=== PATIENT | male | born 1980 | race Caucasian/White ===

== ENCOUNTER 2018-06-04 01:13 | Emergency (ER) | payer OTHER, MEDICAID, SELFPAY ==
--- NOTE | 2018-06-04 01:19 | ED.EXTPRO ---
HPI - Extremity Problem General Chief complaint: Skin/Abscess/Foreign Body Stated complaint: RIGHT LEG IS SWELLING, INJURED AT WORK Time Seen by Provider: 06/04/18 01:18 Source: patient Mode of arrival: ambulatory Limitations: no limitations History of Present Illness HPI Narrative: Patient is a 37-year-old male here for evaluation of a right leg injury. He states that the end of last week he scraped his leg on a door frame. He did go to work the next day and had some discomfort. Over the weekend he did not have to work. He did state that his leg has been elevated. He returned to work today and after his 10 hr shift he had swelling and pain and redness around the injury site. He does not know when his last tetanus shot was. Related Data Previous Rx's Medication Instructions Recorded cephalexin [Keflex] 500 mg PO BID 7 Days #14 cap 06/04/18 Allergies Allergy/AdvReac Type Severity Reaction Status Date / Time No Known Drug Allergies Allergy Verified 06/04/18 01:29 Review of Systems Constitutional Denies fever(s) and Denies weakness ENT Ears, Nose, Mouth, and Throat: Denies disequilibrium Cardiovascular Denies chest pain and Denies dyspnea Respiratory Denies dyspnea Gastrointestinal Gastrointestinal: Denies abdominal pain Musculoskeletal Comments: Pain in his right leg Integumentary/Breasts Comments: Cut to his right anterior leg with pain and swelling Neurologic Denies paresthesias, Denies disequilibrium and Denies weakness Hematologic/Lymphatic Comments: Not on anticoagulation PFSH Medical History Healthy adult (Acute) Surgical History No pertinent past surgical history (Acute) Social History Smoking Status: Current every day smoker Exam Initial Vital Signs Initial Vital Signs: Vital Signs Temperature 99.6 F 06/04/18 01:24 Pulse Rate 78 06/04/18 01:24 Respiratory Rate 14 06/04/18 01:24 Blood Pressure 133/83 06/04/18 01:24 Pulse Oximetry 98 06/04/18 01:24 Const General: cooperative, healthy appearing, comfortable, well developed, well groomed and No acute distress Orientation: alert, awake and oriented x3 HENMT Head: normal to inspection and normocephalic Resp Effort & Inspection: normal respiratory effort Cardio Rate: regular rate Skin Other: Patient with a 4 cm abrasion on the anterior aspect of his right miller at the distal 1/3. Does have surrounding erythema. No drainage. There is an eschar in place. Extrem Other: Patient with 1+ pitting edema from the top of wear his boot had been on all day to just distal to his knee. Psych Appearance: grossly normal and well kempt Course Orders Ordered: Discontinued Medications Diphtheria/Tetanus/Acell Pertussis (Adacel) 0.5 ml IM .ONCE ONE Stop: 06/04/18 01:36 Vital Signs - 8 hr 06/04/18 01:24 Temperature 99.6 F Pulse Rate 78 Respiratory Rate 14 Blood Pressure 133/83 Pulse Oximetry 98 MDM - Extremity (Nontraumatic) MDM Narrative Medical decision making narrative: Patient does have an abrasion on his right anterior miller with some surrounding erythema. No drainage. Well out of the window for any sort of suturing. I did inform him that it would former scar. He does have some surrounding erythema which is concerning for cellulitis. Does have swelling from the area where his boot ended to just distal to his knee. I suspect that this is because he has been standing today. His tetanus was updated. He was given return precautions. He expressed understanding and agreement with plan. Discharge Plan Departure Patient Disposition: Home Clinical Impression: Abrasion of skin, Cellulitis Instructions: DI for Abrasion Activity Restrictions/Additional Instructions: Keep the area clean with soap and water. Your tetanus shot was updated today. Take the antibiotics as directed. Return to the emergency department for any new or worsening symptoms Prescriptions: New cephalexin [Keflex] 500 mg capsule 500 mg PO BID 7 Days Qty: 14 RF: 0
[2018-06-04 01:24] VITALS: BP 133/83; PULSE 78; RESP 14; TEMP 37.6; O2SAT 98; BMI 27.9
[2018-06-04] MEDS: TET,DIPH,PERTUSS(ACELL),VAC/PF 0.5 ML SYRINGE IM (01:46)
== END 2018-06-04 01:57 | disposition home or self-care (01) ==
LOC: ED 01:59
PROVIDERS: Emergency Provider Emergency Medicine
DX: S80.811A Abrasion, right lower leg, initial encounter (principal); W22.09XA Striking against other stationary object, initial encounter; L03.115 Cellulitis of right lower limb
CPT/HCPCS: 90471; 99282; 99283; 90715

== ENCOUNTER → 2019-10-22 15:45 | Outpatient (CLI) | payer OTHER, SELFPAY ==
[2019-10-24 14:08] LABS: QuantiFERON Mitogen Value 6.28 IU/mL (.); QuantiFERON Nil Value 0.11 IU/mL (.); QuantiFERON TB Gold Plus Positive (Negative); QuantiFERON TB1 Ag Value 0.85 IU/mL (.); QuantiFERON TB2 Ag Value 0.55 IU/mL (.)
== END ==
PROVIDERS: Referring Provider Family Medicine; Visit Provider Family Medicine
DX: R76.11 Nonspecific reaction to tuberculin skin test without active tuberculosis (principal)
CPT/HCPCS: 36415; 86480

== ENCOUNTER 2020-02-07 11:51 | Emergency (ER) | payer OTHER, SELFPAY ==
[2020-02-07 12:01] VITALS: BP 143/85; PULSE 57; RESP 16; TEMP 36.2; O2SAT 100; BMI 29.4
[2020-02-07] MEDS: PROPARACAINE 0.5% OPHTH SOL 1 DROPS EYE-RIGHT (12:11)
[2020-02-07] MEDS: FLUORESCEIN 1 MG STRIP EYE-BOTH (12:11)
[2020-02-07] MEDS: SULFACETAMIDE 10% OPHTH PREPACK 1 BOTTLE MISC (12:29)
--- NOTE | 2020-02-07 12:29 | ED.EYEPROB ---
HPI - Eye Problem General Chief complaint: Eye Problems Stated complaint: Object in RT eye Time Seen by Provider: 02/07/20 12:01 Source: patient Mode of arrival: Ambulatory Limitations: no limitations History of Present Illness HPI Narrative: 39M daily smoker without significant medical history presents from the walk-in clinic for evaluation of retained foreign body in right eye. Patient was wearing glasses, while working with metal yesterday and a small shaving got into his right eye. He denies any vision change but has had watering and some discomfort. His tetanus was updated last year. He does not wear contacts. He was first seen at [facility], given proparacaine an attempt to remove foreign body with moistened Q-tip was unsuccessful. He was sent here for further evaluation. chief complaint: eye injury Onset (ago): hour(s) Onset description: sudden Duration: constant Location: right eye Eye Symptoms: foreign body sensation Place: home Mechanism: occurred while hammering/grinding Severity: mild If Pain, Quality: aching Context: trauma Associated symptoms: none Treatments Prior to Arrival: other Related Data Patient tetanus UTD: Yes Home Medications Medication Instructions Recorded Confirmed No Known Home Medications 02/07/20 02/07/20 Allergies Allergy/AdvReac Type Severity Reaction Status Date / Time No Known Drug Allergies Allergy Verified 02/07/20 11:17 Review of Systems Constitutional Constitutional: Denies chills, Denies fatigue, Denies fever(s), Denies frequent falls, Denies lethargy and Denies weakness Eyes Eyes: Denies change in vision, Denies eye discharge, Denies irritation, Denies loss of vision and Reports other ENT Ears, Nose, Mouth, and Throat: Denies change in voice, Denies dizziness, Denies neck pain, Denies sore throat and Denies throat swelling Cardiovascular Cardiovascular: Denies chest pain, Denies irregular heart rhythm, Denies lightheadedness, Denies palpitations, Denies dyspnea, Denies dyspnea on exertion and Denies orthopnea Respiratory Respiratory: Denies cough, Denies dyspnea, Denies dyspnea on exertion and Denies wheezing Gastrointestinal Gastrointestinal: Denies abdominal pain, Denies change in bowel habits, Denies diarrhea, Denies nausea and Denies vomiting Musculoskeletal Musculoskeletal: Denies neck pain and Denies numbness Integumentary/Breasts Skin/Breast: Denies pruritus, Denies erythema, Denies rash and Denies wounds Neurologic Neurologic: Denies behavioral changes, Denies confusion, Denies dizziness, Denies frequent falls, Denies loss of vision, Denies numbness and Denies weakness Psychiatric Psychiatric: Denies anxiety, Denies behavioral changes, Denies confusion, Denies depression, Denies homicidal ideation and Denies suicidal ideation Endocrine Endocrine: Denies fatigue, Denies flushing and Denies palpitations Hematologic/Lymphatic Hematologic/Lymphatic: Denies easy bruising Allergic/Immunologic Allergic/Immunologic: Denies urticaria, Denies throat swelling and Denies wheezing Patient History Medical History FB eye (Acute) Healthy adult (Acute) Surgical History No pertinent past surgical history (Acute) Social History Smoking Status: Current every day smoker Smoking Status: Current every day smoker alcohol intake frequency: 0-2 drinks per day Substance Use Type: does not use Exam Narrative Exam Narrative: GEN: AOx3 and in mild distress EYES: Small FB noted at 5 o'clock position overlying iris. Upper lid everted. Near complete resolution of discomfort with proparacaine. FB easily swept away with moistened qtip. When viewed under UV lamp there was a very small area of corneal abrasion. Pupils are equal, round, and reactive to light and accommodation. Extraoccular muscles are intact bilaterally. There is no subconjunctival hemorrhage or exudate. CHEST: Lungs are clear to auscultation bilaterally and free of wheezes, rales, or rhonchi. Heart rate is regular rhythm, there are no murmurs, clicks, rubs, or gallops. There is no chest wall tenderness. ABD: Abdomen is soft and nontender. There is no guarding or rebound. Bowel sounds are normal in all 4 quadrants. There is no mass or organomegaly. EXT: Full painless ROM of all extremities with no loss of sensation or strength. SKIN: Warm, pink, and dry. No erythema or rash Initial Vital Signs Initial Vital Signs: Vital Signs Temperature 97.2 F L 02/07/20 12:01 Pulse Rate 57 L 02/07/20 12:01 Respiratory Rate 16 02/07/20 12:01 Blood Pressure 143/85 H 02/07/20 12:01 Pulse Oximetry 100 02/07/20 12:01 Course Orders Ordered: Discontinued Medications Fluorescein Sodium (Ful-Teetee) 1 mg EYE-BOTH NOW ONE Stop: 02/07/20 12:05 Last Admin: 02/07/20 12:11 Dose: 1 mg Documented by: PEYTON Proparacaine HCl (Parcaine 0.5% Ophth Ana) 1 drops EYE-RIGHT NOW ONE Stop: 02/07/20 12:02 Last Admin: 02/07/20 12:11 Dose: 1 1000units Documented by: PEYTON Sulfacetamide (Bleph-10 Prepack) 1 bottle MISC SEEINSTR ONE Stop: 02/07/20 12:19 Vital Signs Vital signs: Vital Signs - 8 hr 02/07/20 12:01 Temperature 97.2 F L Pulse Rate 57 L Respiratory Rate 16 Blood Pressure 143/85 H Pulse Oximetry 100 Discharge Plan Departure Patient Disposition: Home Clinical Impression: FB eye Qualifiers: Encounter type: initial encounter Laterality: right Qualified Code(s): T15.91XA - Foreign body on external eye, part unspecified, right eye, initial encounter Corneal abrasion Qualifiers: Encounter type: initial encounter Laterality: right Qualified Code(s): S05.01XA - Injury of conjunctiva and corneal abrasion without foreign body, right eye, initial encounter Discharge Date/Time: 02/07/20 12:33 Instructions: DI for Corneal Abrasion, DI for Corneal Foreign Body-Eye Activity Restrictions/Additional Instructions: *You have been diagnosed with [corneal foreign body with small abrasion] *What to do: *Take medications as directed *Follow up with your primary care provider in 2-3 days, call for an appointment. Let them know you were seen in the Emergency Department and that we ask that you be seen in follow up *Return to ER if you should have any new, worsening or concerning symptoms Prescriptions: No Action No Known Home Medications RF: 0 Referrals: Edil Rodriguez MD [Physician] -
== END 2020-02-07 12:33 | disposition home or self-care (01) ==
PROVIDERS: Emergency Provider Emergency Medicine
DX: T15.91XA Foreign body on external eye, part unspecified, right eye, initial encounter (principal); S05.01XA Injury of conjunctiva and corneal abrasion without foreign body, right eye, initial encounter
CPT/HCPCS: 99282

== ENCOUNTER → 2021-01-05 13:13 | Outpatient (ROUT) | payer OTHER, SELFPAY ==
[2021-01-05 13:51] LABS: COVID19 -Nasal RAPID Negative (Negative)
== END ==
PROVIDERS: Visit Provider Family Medicine
DX: Z20.822 Contact with and (suspected) exposure to COVID-19 (principal)
CPT/HCPCS: 87635

== ENCOUNTER → 2021-02-21 12:59 | Outpatient (ROUT) | payer OTHER, SELFPAY ==
[2021-02-21 15:08] LABS: COVID19 -Nasal RAPID Negative (Negative)
== END ==
PROVIDERS: Visit Provider Family Medicine
DX: Z20.822 Contact with and (suspected) exposure to COVID-19 (principal)
CPT/HCPCS: 87635

== ENCOUNTER → 2021-04-29 12:16 | Outpatient (CLI) | payer OTHER, SELFPAY ==
[2021-04-29 13:02] LABS: COVID19 -Nasal RAPID Negative (Negative)
== END ==
PROVIDERS: Visit Provider Physician Assistant
DX: Z20.822 Contact with and (suspected) exposure to COVID-19 (principal); J02.9 Acute pharyngitis, unspecified; R05.9 Cough, unspecified
CPT/HCPCS: 87635

== ENCOUNTER → 2021-07-07 08:29 | Outpatient (CLI) | payer OTHER, SELFPAY ==
[2021-07-07 09:20] LABS: Add Manual Diff / Slide Review NO; Basophils Absolute Auto 0 /uL (0-100); Basophils Percent Auto 0.5 % (0-2); Eosinophils Absolute Auto 200 /uL (0-450); Eosinophils Percent Auto 2.8 % (2-4); Hematocrit 44.2 % (41-53); Hemoglobin 15.5 g/dL (13.5-17.5); Lymphocytes Absolute Auto 2100 /uL (1100-4500); Lymphocytes Percent Auto 33.8 % (25-40); Mean Corpuscular Hemoglobin 30.7 PG (26-34); Mean Corpuscular Volume 87.8 fL (80-100); Monocytes Absolute Auto 500 /uL (0-900); Monocytes Percent Auto 8.6 % (3-14); Neutrophils Absolute Auto 3300 /uL (1500-7000); Neutrophils Percent Auto 54.3 % (50-75); Platelet Count 158 X10^3/uL (150-400); Red Blood Cell Count 5.03 X10^6/uL (4.5-5.9); Red Cell Distribution Width 12.7 % (11.6-14.8); White Blood Cell Count 6.2 X10^3/uL (4.5-11.0)
[2021-07-07 09:38] LABS: BUN Creatinine Ratio 22.1 (6-22); Blood Urea Nitrogen 19 mg/dL (9-20); Calcium 9.9 mg/dL (8.4-10.2); Carbon Dioxide 31 mmol/L (22-32); Chloride 104 mmol/L (98-107); Cholesterol 223 mg/dL (140-199); Estimated Glomerular Filt Rate > 60.0 mL/min (>60); Glucose 100 mg/dL (70-100); HDL Cholesterol 61 mg/dL (40-60); HEMOLYSIS < 15 (0-50); LDL Cholesterol Calculated 142 mg/dL (<100); Potassium 4.4 mmol/L (3.4-5.1); Sodium 140 mmol/L (137-145); Triglycerides 100 mg/dL (35-150)
== END ==
PROVIDERS: PCP Family Medicine; Referring Provider Family Medicine; Visit Provider Family Medicine
DX: Z13.220 Encounter for screening for lipoid disorders (principal)
CPT/HCPCS: 36415; 80048; 80061; 85025

== ENCOUNTER → 2021-10-08 08:55 | Outpatient (CLI) | payer OTHER, SELFPAY ==
[2021-10-08 10:49] LABS: Cholesterol 199 mg/dL (140-199); HDL Cholesterol 59 mg/dL (40-60); LDL Cholesterol Calculated 117 mg/dL (<100); Triglycerides 117 mg/dL (35-150)
== END ==
PROVIDERS: PCP Family Medicine; Referring Provider Family Medicine; Visit Provider Family Medicine
DX: E78.00 Pure hypercholesterolemia, unspecified (principal)
CPT/HCPCS: 36415; 80061

== ENCOUNTER → 2022-01-24 10:43 | Outpatient (CLI) | payer OTHER, SELFPAY ==
[2022-01-24 10:57] LABS: Semen Sperm Prescence Post-Vas Absent (ABSENT)
== END ==
PROVIDERS: PCP Family Medicine; Referring Provider Family Medicine; Visit Provider Family Medicine
DX: Z30.2 Encounter for sterilization (principal)
CPT/HCPCS: 89321